=== PATIENT | female | born 1950 | race Caucasian/White ===

== ENCOUNTER → 2017-07-06 | Outpatient (CLI) | payer OTHER ==
[2017-07-06 18:54] LABS: Free Thyroxine 0.97 ng/dL (0.70-1.60)
[2017-07-06 18:58] LABS: Thyroid Stimulating Hormone 0.511 uIU/mL (0.360-4.800)
== END ==
LOC: LAB SHORT 17:48 → LAB 17:48
PROVIDERS: Nurse Practitioner Adult Health
DX: E05.00 Thyrotoxicosis with diffuse goiter without thyrotoxic crisis or storm (principal)
CPT/HCPCS: 84439; 84443

== ENCOUNTER → 2017-07-21 | Outpatient (CLI) | payer OTHER | LOC: LAB 14:23 → LAB SHORT 14:23 | PROVIDERS: Registered Nurse Community Health | DX: Z12.4 Encounter for screening for malignant neoplasm of cervix (principal); R85.610 Atypical squamous cells of undetermined significance on cytologic smear of anus (ASC-US) | CPT/HCPCS: 87624; G0123 ==

== ENCOUNTER → 2017-09-07 | Outpatient (CLI) | payer OTHER ==
[2017-09-07 18:01] LABS: BASOPHILS ABSOLUTE AUTO 0.07 K/mm3 (0.00-0.23); BASOPHILS PERCENT AUTO 1 % (0-2); EOSINOPHILS PERCENT AUTO 6 % (0-6); Hematocrit 45.2 % (33.0-51.0); Hemoglobin 14.4 g/dL (11.5-16.0); IMMATURE GRAN ABSOLUTE AUTO 0.01 K/mm3 (0.00-0.10); IMMATURE GRAN PERCENT AUTO 0 % (0-1); LYMPHOCYTES ABSOLUTE AUTO 1.73 K/mm3 (0.84-5.20); LYMPHOCYTES PERCENT AUTO 34 % (21-46); MONOCYTES ABSOLUTE AUTO 0.42 K/mm3 (0.16-1.47); MONOCYTES PERCENT AUTO 8 % (4-13); Mean Corpuscular HGB 29.4 pg (26.0-34.0); Mean Corpuscular HGB Conc 31.9 g/dL (31.5-36.5); Mean Corpuscular Volume 92 fL (80-100); Mean Platelet Volume 10.7 fL (9.1-12.4); NEUTROPHILS ABSOLUTE AUTO 2.54 K/mm3 (1.96-9.15); NEUTROPHILS PERCENT AUTO 50 % (41-73); Platelet Count 249 K/mm3 (150-400); RDW Coefficient Variation 13.6 % (11.7-14.2); RDW Standard Deviation 46.1 fL (35.1-46.3); White Blood Cell Count 5.07 K/mm3 (4.00-11.30)
[2017-09-07 20:13] LABS: Free Thyroxine 1.13 ng/dL (0.70-1.60); LDL/HDL RATIO 1.7; Thyroid Stimulating Hormone 0.266 uIU/mL (0.360-4.800); Very Low Density Lipoprot Chol 16 mg/dL (6-32)
[2017-09-07 20:14] LABS: Alanine Aminotransfer (ALT/SGP 24 U/L (12-78); Albumin/Globulin Ratio 1.2 (0.8-1.8); Alk Phos 78 U/L (50-136); Anion Gap 9 mmol/L (6-16); Aspartate Aminotrans (AST/SGOT 22 U/L (12-37); Bilirubin, Total 0.3 mg/dL (0.1-1.0); Blood Urea Nitrogen 14 mg/dL (8-24); Bun/Creatinine Ratio 20.1 (12.0-20.0); CO2, Blood 27 mmol/L (21-32); Calcium, Blood 9.3 mg/dL (8.5-10.1); Chloride, Blood 104 mmol/L (98-108); Cholesterol 207 mg/dL (50-200); Globulin, Blood 3.4 g/dL (2.2-4.0); Glomerular Filtration Rate >60 (60-); Glucose, Blood 102 mg/dL (70-99); HDL Cholesterol 70 mg/dL (>39); Low Density Lipoprotein Chol 121 mg/dL (0-110); Sodium, Blood 140 mmol/L (136-145); Total Protein, Blood 7.4 g/dL (6.4-8.2); Triglycerides 81 mg/dL (30-160)
== END | disposition home or self-care (01) ==
LOC: LAB SHORT 09:16 → LAB 09:16
PROVIDERS: Nurse Practitioner Adult Health
DX: E05.00 Thyrotoxicosis with diffuse goiter without thyrotoxic crisis or storm (principal); F17.200 Nicotine dependence, unspecified, uncomplicated; M25.519 Pain in unspecified shoulder; E78.5 Hyperlipidemia, unspecified
CPT/HCPCS: 80053; 80061; 84439; 84443; 85025

== ENCOUNTER → 2018-02-11 | Outpatient (CLI) | payer MEDICARE, OTHER ==
[2018-02-11 17:54] LABS: BASOPHILS ABSOLUTE AUTO 0.07 K/mm3 (0.00-0.23); BASOPHILS PERCENT AUTO 1 % (0-2); EOSINOPHILS PERCENT AUTO 3 % (0-6); Hematocrit 46.2 % (33.0-51.0); Hemoglobin 14.6 g/dL (11.5-16.0); IMMATURE GRAN ABSOLUTE AUTO 0.01 K/mm3 (0.00-0.10); IMMATURE GRAN PERCENT AUTO 0 % (0-1); LYMPHOCYTES ABSOLUTE AUTO 1.92 K/mm3 (0.84-5.20); LYMPHOCYTES PERCENT AUTO 30 % (21-46); MONOCYTES ABSOLUTE AUTO 0.57 K/mm3 (0.16-1.47); MONOCYTES PERCENT AUTO 9 % (4-13); Mean Corpuscular HGB 29.8 pg (26.0-34.0); Mean Corpuscular HGB Conc 31.6 g/dL (31.5-36.5); Mean Corpuscular Volume 94 fL (80-100); Mean Platelet Volume 10.5 fL (9.1-12.4); NEUTROPHILS ABSOLUTE AUTO 3.55 K/mm3 (1.96-9.15); NEUTROPHILS PERCENT AUTO 56 % (41-73); Platelet Count 260 K/mm3 (150-400); RDW Coefficient Variation 13.8 % (11.7-14.2); RDW Standard Deviation 48.4 fL (35.1-46.3); White Blood Cell Count 6.32 K/mm3 (4.00-11.30)
[2018-02-11 18:31] LABS: Alanine Aminotransfer (ALT/SGP 23 U/L (12-78); Albumin, Blood 3.9 g/dL (3.4-5.0); Albumin/Globulin Ratio 1.1 (0.8-1.8); Alk Phos 89 U/L (50-136); Anion Gap 6 mmol/L (6-16); Aspartate Aminotrans (AST/SGOT 14 U/L (12-37); Bilirubin, Total 0.3 mg/dL (0.1-1.0); Blood Urea Nitrogen 16 mg/dL (8-24); Bun/Creatinine Ratio 21.7 (12.0-20.0); CHOL/HDL RATIO 3.1; CO2, Blood 30 mmol/L (21-32); Calcium, Blood 9.2 mg/dL (8.5-10.1); Chloride, Blood 103 mmol/L (98-108); Cholesterol 231 mg/dL (50-200); Creatinine, Blood 0.74 mg/dL (0.40-1.00); Free Thyroxine 0.95 ng/dL (0.70-1.60); Globulin, Blood 3.7 g/dL (2.2-4.0); Glomerular Filtration Rate >60 (60-); Glucose, Blood 91 mg/dL (70-99); HDL Cholesterol 74 mg/dL (>39); LDL/HDL RATIO 1.8; Low Density Lipoprotein Chol 135 mg/dL (0-110); Potassium, Blood 4.5 mmol/L (3.5-5.5); Sodium, Blood 139 mmol/L (136-145); Thyroid Stimulating Hormone 0.814 uIU/mL (0.360-4.800); Total Protein, Blood 7.6 g/dL (6.4-8.2); Triglycerides 110 mg/dL (30-160); Very Low Density Lipoprot Chol 22 mg/dL (6-32)
[2018-02-12 15:07] LABS: TRIIODOTHYRONINE (T3) 117 ng/dL (71-180)
[2018-02-13 03:10] LABS: HCV ANTIBODY <0.1 (0.0-0.9)
== END ==
LOC: LAB SHORT 17:32 → LAB 17:32
PROVIDERS: Nurse Practitioner Family
DX: Z29.9 Encounter for prophylactic measures, unspecified (principal); I10 Essential (primary) hypertension; E05.00 Thyrotoxicosis with diffuse goiter without thyrotoxic crisis or storm
CPT/HCPCS: 80053; 80061; 84439; 84443; 85025

== ENCOUNTER → 2018-08-31 | Outpatient (CLI) | payer MEDICARE, OTHER ==
[2018-09-01 15:07] LABS: HPV 16 Negative (Negative); HPV 18 Negative (Negative); HPV OTHER HR TYPES Negative (Negative)
== END ==
LOC: LAB SHORT 13:58 → LAB 13:58
PROVIDERS: Registered Nurse Community Health
DX: Z01.419 Encounter for gynecological examination (general) (routine) without abnormal findings (principal)
CPT/HCPCS: 87624; G0123

== ENCOUNTER → 2019-11-16 | Outpatient (CLI) | payer MEDICARE, OTHER ==
[2019-11-17 14:03] LABS: Stool Occult Bld Immuno 1 Negative (NEGATIVE)
== END | disposition home or self-care (01) ==
LOC: OLS 12:23 → LAB SHORT 12:23
PROVIDERS: Internal Medicine Gastroenterology
DX: Z12.11 Encounter for screening for malignant neoplasm of colon (principal)
CPT/HCPCS: G0328

== ENCOUNTER → 2020-12-05 | Outpatient (CLI) | payer MEDICARE, OTHER | END | disposition home or self-care (01) | LOC: LAB SHORT 14:00 | DX: N39.0 Urinary tract infection, site not specified (principal) | CPT/HCPCS: 87086 ==

== ENCOUNTER → 2021-01-08 | Outpatient (CLI) | payer MEDICARE, OTHER ==
[2021-01-08 19:05] LABS: Alanine Aminotransfer (ALT/SGP 22 U/L (12-78); Albumin, Blood 3.8 g/dL (3.4-5.0); Alk Phos 92 U/L (50-136); Anion Gap 6 mmol/L (6-16); Aspartate Aminotrans (AST/SGOT 18 U/L (12-37); Bilirubin, Total 0.4 mg/dL (0.1-1.0); Blood Urea Nitrogen 21 mg/dL (8-24); Bun/Creatinine Ratio 26.6 (12.0-20.0); CO2, Blood 30 mmol/L (21-32); Calcium, Blood 9.4 mg/dL (8.5-10.1); Chloride, Blood 106 mmol/L (98-108); Creatinine, Blood 0.79 mg/dL (0.40-1.00); Free Thyroxine 0.96 ng/dL (0.70-1.60); Globulin, Blood 3.8 g/dL (2.2-4.0); Glomerular Filtration Rate >60 (60-); Glucose, Blood 97 mg/dL (70-99); Sodium, Blood 142 mmol/L (136-145); Total Protein, Blood 7.6 g/dL (6.4-8.2)
== END | disposition home or self-care (01) ==
LOC: LAB SHORT 16:37 → LAB 16:37
PROVIDERS: Internal Medicine Endocrinology, Diabetes & Metabolism
DX: E05.00 Thyrotoxicosis with diffuse goiter without thyrotoxic crisis or storm (principal)
CPT/HCPCS: 80053; 84439; 84443

== ENCOUNTER → 2021-09-05 | Outpatient (CLI) | payer MEDICARE, OTHER ==
[2021-09-05 17:27] LABS: Free Thyroxine 0.99 ng/dL (0.70-1.60)
[2021-09-05 17:29] LABS: Thyroid Stimulating Hormone 0.306 uIU/mL (0.360-4.800)
== END | disposition home or self-care (01) ==
LOC: LAB SHORT 14:00 → LAB 14:00
PROVIDERS: Family Medicine
DX: E05.00 Thyrotoxicosis with diffuse goiter without thyrotoxic crisis or storm (principal)
CPT/HCPCS: 84439; 84443

== ENCOUNTER → 2021-10-16 | Outpatient (CLI) | payer MEDICARE, OTHER | END | disposition home or self-care (01) | LOC: LAB SHORT 09:40 | DX: M54.59 Other low back pain (principal); R82.79 Other abnormal findings on microbiological examination of urine | CPT/HCPCS: 87086 ==

== ENCOUNTER → 2022-02-19 | Outpatient (CLI) | payer MEDICARE, OTHER ==
[2022-02-19 17:49] LABS: BASOPHILS ABSOLUTE AUTO 0.05 K/mm3 (0.00-0.23); BASOPHILS PERCENT AUTO 1 % (0-2); EOSINOPHILS ABSOLUTE AUTO 0.23 K/mm3 (0.00-0.68); EOSINOPHILS PERCENT AUTO 5 % (0-6); Hematocrit 43.7 % (33.0-51.0); Hemoglobin 14.3 g/dL (11.5-16.0); IMMATURE GRAN PERCENT AUTO 0 % (0-1); LYMPHOCYTES ABSOLUTE AUTO 1.76 K/mm3 (0.84-5.20); LYMPHOCYTES PERCENT AUTO 37 % (21-46); MONOCYTES ABSOLUTE AUTO 0.48 K/mm3 (0.16-1.47); MONOCYTES PERCENT AUTO 10 % (4-13); Mean Corpuscular HGB 29.4 pg (26.0-34.0); Mean Corpuscular HGB Conc 32.7 g/dL (31.5-36.5); Mean Corpuscular Volume 90 fL (80-100); Mean Platelet Volume 10.6 fL (9.1-12.4); NEUTROPHILS ABSOLUTE AUTO 2.19 K/mm3 (1.96-9.15); NEUTROPHILS PERCENT AUTO 46 % (41-73); Platelet Count 256 K/mm3 (150-400); RDW Coefficient Variation 14.2 % (11.7-14.2); RDW Standard Deviation 46.7 fL (35.1-46.3); Red Blood Cell Count 4.86 M/mm3 (3.80-5.20); White Blood Cell Count 4.71 K/mm3 (4.00-11.30)
[2022-02-19 20:40] LABS: Alanine Aminotransfer (ALT/SGP 27 U/L (12-78); Albumin, Blood 3.8 g/dL (3.4-5.0); Albumin/Globulin Ratio 1.2 (0.8-1.8); Alk Phos 80 U/L (50-136); Anion Gap 6 mmol/L (6-16); Aspartate Aminotrans (AST/SGOT 17 U/L (12-37); Bilirubin, Total 0.3 mg/dL (0.1-1.0); Blood Urea Nitrogen 26 mg/dL (8-24); Bun/Creatinine Ratio 30.1 (12.0-20.0); CHOL/HDL RATIO 3.2; CO2, Blood 27 mmol/L (21-32); Calcium, Blood 9.3 mg/dL (8.5-10.1); Chloride, Blood 105 mmol/L (98-108); Cholesterol 270 mg/dL (50-200); Creatinine, Blood 0.86 mg/dL (0.40-1.00); Globulin, Blood 3.3 g/dL (2.2-4.0); Glomerular Filtration Rate 73 (60-); Glucose, Blood 98 mg/dL (70-99); HDL Cholesterol 84 mg/dL (>39); LDL/HDL RATIO 2.1; Low Density Lipoprotein Chol 176 mg/dL (0-110); Potassium, Blood 4.3 mmol/L (3.5-5.5); Sodium, Blood 138 mmol/L (136-145); Total Protein, Blood 7.1 g/dL (6.4-8.2); Triglycerides 52 mg/dL (30-160); Very Low Density Lipoprot Chol 10 mg/dL (6-32)
== END | disposition home or self-care (01) ==
LOC: LAB SHORT 10:49
PROVIDERS: Family Medicine
DX: Z51.81 Encounter for therapeutic drug level monitoring (principal); Z79.899 Other long term (current) drug therapy
CPT/HCPCS: 80053; 80061; 82306; 83036; 84443; 85025

== ENCOUNTER → 2022-11-17 | Outpatient (CLI) | payer MEDICARE, OTHER ==
[2022-11-17 18:05] LABS: BASOPHILS ABSOLUTE AUTO 0.07 K/mm3 (0.00-0.23); BASOPHILS PERCENT AUTO 1 % (0-2); EOSINOPHILS ABSOLUTE AUTO 0.31 K/mm3 (0.00-0.68); EOSINOPHILS PERCENT AUTO 6 % (0-6); Hematocrit 46.4 % (33.0-51.0); Hemoglobin 14.9 g/dL (11.5-16.0); IMMATURE GRAN ABSOLUTE AUTO 0.01 K/mm3 (0.00-0.10); IMMATURE GRAN PERCENT AUTO 0 % (0-1); LYMPHOCYTES ABSOLUTE AUTO 2.23 K/mm3 (0.84-5.20); LYMPHOCYTES PERCENT AUTO 41 % (21-46); MONOCYTES PERCENT AUTO 9 % (4-13); Mean Corpuscular HGB 29.2 pg (26.0-34.0); Mean Corpuscular HGB Conc 32.1 g/dL (31.5-36.5); Mean Corpuscular Volume 91 fL (80-100); Mean Platelet Volume 10.9 fL (9.1-12.4); NEUTROPHILS ABSOLUTE AUTO 2.26 K/mm3 (1.96-9.15); NEUTROPHILS PERCENT AUTO 42 % (41-73); Platelet Count 257 K/mm3 (150-400); RDW Coefficient Variation 14.2 % (11.7-14.2); Red Blood Cell Count 5.11 M/mm3 (3.80-5.20); White Blood Cell Count 5.38 K/mm3 (4.00-11.30)
[2022-11-17 19:31] LABS: Alanine Aminotransfer (ALT/SGP 37 U/L (12-78); Albumin, Blood 3.9 g/dL (3.4-5.0); Albumin/Globulin Ratio 1.1 (0.8-1.8); Alk Phos 92 U/L (50-136); Anion Gap 5 mmol/L (6-16); Aspartate Aminotrans (AST/SGOT 23 U/L (12-37); Bilirubin, Total 0.5 mg/dL (0.1-1.0); Blood Urea Nitrogen 19 mg/dL (8-24); CHOL/HDL RATIO 3.3; CO2, Blood 28 mmol/L (21-32); Calcium, Blood 9.8 mg/dL (8.5-10.1); Chloride, Blood 106 mmol/L (98-108); Cholesterol 255 mg/dL (50-200); Creatinine, Blood 0.76 mg/dL (0.40-1.00); Free Thyroxine 0.89 ng/dL (0.70-1.60); Globulin, Blood 3.7 g/dL (2.2-4.0); Glomerular Filtration Rate 84 (60-); Glucose, Blood 107 mg/dL (70-99); HDL Cholesterol 78 mg/dL (>39); Low Density Lipoprotein Chol 154 mg/dL (0-110); Sodium, Blood 139 mmol/L (136-145); Thyroid Stimulating Hormone 0.126 uIU/mL (0.360-4.800); Total Protein, Blood 7.6 g/dL (6.4-8.2); Triglycerides 114 mg/dL (30-160); Very Low Density Lipoprot Chol 22 mg/dL (6-32)
== END | disposition home or self-care (01) ==
LOC: LAB SHORT 10:00 → LAB 10:00
PROVIDERS: Nurse Practitioner Family
DX: E05.00 Thyrotoxicosis with diffuse goiter without thyrotoxic crisis or storm (principal); E78.2 Mixed hyperlipidemia; E55.9 Vitamin D deficiency, unspecified
CPT/HCPCS: 80053; 80061; 82306; 84439; 84443; 85025

== ENCOUNTER 2023-03-16 09:57 | Day surgery (SDC) | payer OTHER ==
[~2023-03-16] VITALS: Ht 165.1 cm; Wt 81.2 kg
[~2023-03-16 09:57] MED LIST: ASPI81CH PO; ATOR40TA PO; LOSARTAN POTAS100 M1 PO; Lactated Ringer's 1,000 ML IV ONE; Lidocaine HCl 2% 10 ML SDA ONE; METHIMAZOLE5 M1 PO; METO25ER PO; NITR.4SL SL; Ropivacaine 0.5% HCl/Pf 5 MG/ML 20ML VIAL ONE
[2023-03-16] MEDS ORDERED: Clindamycin 900mg in D5W 50ML 50 ML IV ONE (10:24)
[2023-03-16] MEDS ORDERED: FentaNYL Citrate 50 MCG/ML 2 ML Injection ONE (10:33)
[2023-03-16] MEDS ORDERED: propofoL 20 ML IV ONE (10:33)
[2023-03-16] MEDS ORDERED: LOSA50 PO (10:36)
--- NOTE | 2023-03-16 10:39 | NUR ---
03/16/23 1039 Beverly Mariano PT WAS UNABLE TO HAVE RN USE RUMA WIPE ON OPERATIVE FOOT. CRIED OUT IN PAIN WHEN RN TOUCHED WIPE TO FOOT.
[2023-03-16] MEDS ORDERED: Lactated Ringer's 1,000 ML IV ONE (10:49)
[2023-03-16] MEDS ORDERED: Dexamethasone Sod Phos 10 MG/ML 1ML VIAL ONE (11:21)
[2023-03-16] MEDS ORDERED: Ondansetron HCl 2 MG / ML 2ML Vial ONE (11:21)
[2023-03-16] MEDS ORDERED: ePHEDrine Sulfate 50 MG/ML 1ML Injection ONE (11:38)
[2023-03-16] MEDS ORDERED: EPINEPhrine HCl 1 MG/ML 1ML Amp XX ONE (11:39)
[2023-03-16 13:19] VITALS: BP 142/72
--- NOTE | 2023-03-16 13:43 | NUR ---
03/16/23 9965 Elena Martin REVIEWED D/C INSTRUCTIONS WITH PT. PT VERBALIZES UNDERSTANDING. PT STATES HER HEAD STILL FEELS VERY FUZZY, BUT SHE DENIES PAIN/NAUSEA. WILL CHECK BACK WITH PATIENT TO DETERMINE READINESS TO GO HOME.
== END 2023-03-16 13:57 | disposition home or self-care (01) ==
LOC: ORSCSDS 09:57
PROVIDERS: Podiatrist Foot & Ankle Surgery
PROC: 0SNP0ZZ Release Right Toe Phalangeal Joint, Open Approach (ICD-10-PCS; principal; 2023-03-16 11:15)
PROC: 0QSQ04Z Reposition Right Toe Phalanx with Internal Fixation Device, Open Approach (ICD-10-PCS; principal; 2023-03-16 11:15)
PROC: 0QSN04Z Reposition Right Metatarsal with Internal Fixation Device, Open Approach (ICD-10-PCS; principal; 2023-03-16 11:15)
DX: M20.11 Hallux valgus (acquired), right foot (principal); M20.41 Other hammer toe(s) (acquired), right foot; M79.671 Pain in right foot; I10 Essential (primary) hypertension; I25.10 Atherosclerotic heart disease of native coronary artery without angina pectoris; G47.33 Obstructive sleep apnea (adult) (pediatric); Z87.891 Personal history of nicotine dependence; I25.2 Old myocardial infarction; F41.9 Anxiety disorder, unspecified; F32.A Depression, unspecified; Z79.899 Other long term (current) drug therapy
CPT/HCPCS: C1713; C1769; J0171; J1100; J2001; J2405; J2704; J2795; J3010; J7120

== ENCOUNTER 2023-03-23 17:08 | Emergency (ER) | payer OTHER ==
[~2023-03-23] VITALS: Ht 165.1 cm; Wt 79.4 kg
[~2023-03-23 17:08] MED LIST changes: +LOSA50 PO; -Lactated Ringer's 1,000 ML IV ONE; -Lidocaine HCl 2% 10 ML SDA ONE; -Ropivacaine 0.5% HCl/Pf 5 MG/ML 20ML VIAL ONE
[2023-03-23 17:12] VITALS: BP 185/101
== END 2023-03-23 18:28 | disposition home or self-care (01) ==
LOC: ER 17:08
DX: M79.662 Pain in left lower leg (principal); I25.2 Old myocardial infarction; Z98.890 Other specified postprocedural states; Z88.1 Allergy status to other antibiotic agents; Z91.048 Other nonmedicinal substance allergy status; Z88.0 Allergy status to penicillin; Z88.5 Allergy status to narcotic agent; Z79.82 Long term (current) use of aspirin; Z79.899 Other long term (current) drug therapy
CPT/HCPCS: 93971; 99283-25

== ENCOUNTER → 2023-12-04 | Outpatient (CLI) | payer OTHER | LOC: LAB 15:15 → LAB SHORT 15:15 | DX: R82.998 Other abnormal findings in urine (principal) | CPT/HCPCS: 87086 ==